=== PATIENT | female | born 1985 | race Caucasian/White ===

== ENCOUNTER 2016-09-24 15:27 | Emergency (ER) | payer SELFPAY ==
[2016-09-24] MEDS ORDERED: Acetaminophen TAB* 325 MG PO ONE (17:52)
[2016-09-24 18:30] VITALS: BP 121/67
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
== END 2016-09-24 18:30 | disposition home or self-care (01) ==
LOC: ED 15:27
DX: S30.0XXA Contusion of lower back and pelvis, initial encounter (principal); R10.9 Unspecified abdominal pain; M54.5 Low back pain; V49.9XXA Car occupant (driver) (passenger) injured in unspecified traffic accident, initial encounter; Y93.9 Activity, unspecified; Y92.9 Unspecified place or not applicable
CPT/HCPCS: 99282; A9270-GY

== ENCOUNTER 2017-02-25 08:08 | Inpatient (IN) | payer OTHER ==
[2017-02-25] MEDS ORDERED: Misoprostol TAB* 100 MCG VAGINAL ONE (09:23)
[2017-02-25 10:19] LABS: Hematocrit 39 % (35-47); Hemoglobin 13.4 g/dl (12.0-16.0); Mean Corpuscular HGB Conc 34 g/dl (31-36); Mean Corpuscular Hemoglobin 31 pg (27-31); Mean Corpuscular Volume 90 fL (80-97); Mean Platelet Volume 9 um3 (7.4-10.4); Red Blood Count 4.35 10^6/ul (4.0-5.4); Red Cell Distribution Width 13 % (10.5-15); White Blood Count 7.2 10^3/ul (3.5-10.8)
[2017-02-25] MEDS ORDERED: OBEPIDURAL* 0 ML ONE (14:31)
[2017-02-25] MEDS ORDERED: fentaNYL* 50 MCG/ML 2 ML VIAL (100 MCG VIAL) ONE (14:35)
[2017-02-25] MEDS ORDERED: Dibucaine 1% 28.35 GM TUBE PR PRN (15:21)
[2017-02-25] MEDS: Ibuprofen TAB* 600 MG PO PRN ×2 (15:46→22:07)
[2017-02-25] MEDS: Witch Hazel PAD* JAR TOPICAL PRN (15:49)
[2017-02-25] MEDS: Docusate CAP* 100 MG PO SCH (22:04)
[2017-02-26] MEDS: Ibuprofen TAB* 600 MG PO PRN ×3 (04:01→17:00)
[2017-02-26 07:23] LABS: Hematocrit 38 % (35-47); Hemoglobin 13.1 g/dl (12.0-16.0); Mean Corpuscular HGB Conc 34 g/dl (31-36); Mean Corpuscular Hemoglobin 31 pg (27-31); Mean Corpuscular Volume 91 fL (80-97); Mean Platelet Volume 9 um3 (7.4-10.4); Red Blood Count 4.21 10^6/ul (4.0-5.4); Red Cell Distribution Width 13 % (10.5-15); White Blood Count 8.3 10^3/ul (3.5-10.8)
[2017-02-26] MEDS ORDERED: Ferrous Gluconate TAB* 324 MG TAB PO SCH (09:00)
[2017-02-26] MEDS: Docusate CAP* 100 MG PO SCH ×3 (09:18→21:13)
[2017-02-26] MEDS: Witch Hazel PAD* JAR TOPICAL PRN (09:26)
[2017-02-26] MEDS: Acetaminophen TAB* 325 MG PO PRN (17:44)
[2017-02-26] MEDS ORDERED: oxyCODONE/Acetamin 5/325 MG* TAB PO PRN (19:13)
[2017-02-27] MEDS: Ibuprofen TAB* 600 MG PO PRN ×2 (00:37→07:28)
[2017-02-27 08:09] VITALS: BP 110/69
[2017-02-27] MEDS: Docusate CAP* 100 MG PO SCH (08:45)
[2017-02-27] MEDS ORDERED: Influenza VAC *QUAD* 2017-18* 0.5 ML SYRINGE IM ONE (11:00)
[2017-02-27] MEDS: Acetaminophen TAB* 325 MG PO PRN (11:33)
== END 2017-02-27 11:50 | disposition home or self-care (01) | DRG 775 ==
LOC: MCHOBOUT 08:08 → MCHOB 09:00
PROVIDERS: ADMIT Nurse Practitioner; ATTEND Nurse Practitioner
PROC: 10E0XZZ Delivery of Products of Conception, External Approach (ICD-10-PCS; principal; 2017-02-25)
PROC: 3E033VJ Introduction of Other Hormone into Peripheral Vein, Percutaneous Approach (ICD-10-PCS; 2017-02-25)
PROC: 10907ZC Drainage of Amniotic Fluid, Therapeutic from Products of Conception, Via Natural or Artificial Opening (ICD-10-PCS; 2017-02-25)
DX: O24.420 Gestational diabetes mellitus in childbirth, diet controlled (principal); O99.344 Other mental disorders complicating childbirth; F41.8 Other specified anxiety disorders; O69.81X0 Labor and delivery complicated by cord around neck, without compression, not applicable or unspecified; Z3A.39 39 weeks gestation of pregnancy; Z37.0 Single live birth
CPT/HCPCS: 36415; 85025; 86850; 86900; 86901; 90686; A9270-GY; J3010; S0191